=== PATIENT | female | born 1990 | race Two or more races ===

== ENCOUNTER 2021-11-20 03:28 | Observation (INO) | payer MEDICAID ==
[2021-11-20] MEDS ORDERED: Acetaminophen 500 MG Tab PO PRN (03:49)
[2021-11-20] MEDS ORDERED: Lactated Ringers 1,000 ML IV SCH (04:00)
[2021-11-20] MEDS: Ampicillin 1 GM in Sodium Chloride 0.9% 50 ML IV SCH ×2 (04:24→08:13)
[2021-11-20] MEDS ORDERED: Clindamycin Phosphate in D5W 900 MG in Premix Bag 1 BAG IV ONE ×2 (05:56)
[2021-11-20] MEDS ORDERED: Dexamethasone 10 MG/ML SDV IM ONE (12:45)
== END 2021-11-20 10:20 ==
LOC: MW.OB 03:28
PROVIDERS: ADMIT Obstetrics & Gynecology; ATTEND Obstetrics & Gynecology
DX: O98.512 Other viral diseases complicating pregnancy, second trimester (principal); U07.1 COVID-19; O98.812 Other maternal infectious and parasitic diseases complicating pregnancy, second trimester; A41.9 Sepsis, unspecified organism; Z3A.26 26 weeks gestation of pregnancy
CPT/HCPCS: 36415; 83605; 96365; 96367; 96375; 96376; A9270; G0378; J0290; J1580; J3490; J7120

== ENCOUNTER 2022-06-23 23:09 | Emergency (ER) | payer SELFPAY | END 2022-06-24 03:29 | disposition home or self-care (01) | LOC: MW.ED 23:09 | DX: O99.891 Other specified diseases and conditions complicating pregnancy (principal); R10.2 Pelvic and perineal pain; Z3A.01 Less than 8 weeks gestation of pregnancy | CPT/HCPCS: 36415; 76817; 76817-26; 80053; 81001; 81025; 84702; 85025; 86850; 86900; 86901; 99284 ==

== ENCOUNTER 2023-01-31 00:48 | Observation (INO) | payer MEDICAID | END 2023-01-31 03:36 | disposition home or self-care (01) | LOC: MW.OBCHECK 00:48 → MW.OB 00:56 → MW.OBCHECK 01:26 → MW.OB 01:26 | PROVIDERS: ADMIT Obstetrics & Gynecology; ATTEND Obstetrics & Gynecology | DX: O47.1 False labor at or after 37 completed weeks of gestation (principal); Z3A.37 37 weeks gestation of pregnancy | CPT/HCPCS: 59025; G0378; 99212 ==

== ENCOUNTER 2023-02-05 06:50 | Inpatient (IN) | payer MEDICAID ==
[2023-02-05] MEDS ORDERED: Nalbuphine 10 MG/0.5 ML Syringe IVPUSH ONE (07:20)
[2023-02-05] MEDS ORDERED: Sodium Chloride 0.9% 20 ML SDV IV PRN (09:06)
[2023-02-05] MEDS ORDERED: Tranexamic Acid IN NACL,ISO-OS 1,000 MG in Premix Bag 1 BAG IV PRN ×2 (09:06)
[2023-02-05] MEDS ORDERED: Water For Irrigation,Sterile 1,000 ML Container IRR PRN (09:06)
[2023-02-05] MEDS ORDERED: Misoprostol 200 MCG Tab PO PRN (09:06)
[2023-02-05] MEDS ORDERED: Lidocaine 1% 50 ML MDV INJECT PRN (09:06)
[2023-02-05] MEDS ORDERED: Carboprost Tromethamine 250 MCG/1 mL Vial IM PRN (09:06)
[2023-02-05] MEDS ORDERED: Methylergonovine 0.2 MG/1 ML Amp IM PRN (09:06)
[2023-02-05] MEDS ORDERED: Sodium Chloride 0.9% 2.5 ML Syringe FLUSH PRN (09:06)
[2023-02-05] MEDS ORDERED: Sodium Chloride 0.9% 10 ML Syringe FLUSH PRN (09:06)
[2023-02-05] MEDS ORDERED: Oxytocin/0.9 % Sodium Chloride 30 UNIT/500 ML BAG IV SCH ×2 (09:15→15:30)
[2023-02-05] MEDS: Lactated Ringers 1,000 ML IV SCH ×3 (09:36→17:53)
[2023-02-05 09:57] LABS: HEMATOCRIT 35.2 % (36.0-46.0); HEMOGLOBIN 11.3 g/dL (12.0-16.0); MEAN CORPUSCULAR HEMOGLOBIN 26.2 pg (27.0-32.0); MEAN CORPUSCULAR HGB CONC 32.1 g/dL (31.0-37.0); MEAN CORPUSCULAR VOLUME 81.7 fL (80.0-98.0); RED BLOOD CELL COUNT 4.31 M/uL (4.30-5.90); WHITE BLOOD CELL COUNT,WBC 10.63 K/uL (4.0-11.0)
[2023-02-05] MEDS ORDERED: ePHEDrine 50 MG/ML SDV IVPUSH PRN ×2 (10:05)
[2023-02-05] MEDS ORDERED: Phenylephrine HCl 0.5 MG/5 ML AMP IVPUSH PRN (10:05)
[2023-02-05 10:06] LABS: PLATELET COUNT,PLT 273 K/uL (150-400)
[2023-02-05] MEDS ORDERED: Ropivacaine HCl/PF 400 MG in Premix Bag 1 BAG EPIDUR SCH (10:15)
[2023-02-05] MEDS ORDERED: Dexmedetomidine 200 MCG/2 ML SDV ONE (10:36)
[2023-02-05] MEDS ORDERED: Terbutaline 1 MG/ML SDV SUBCUT PRN (15:22)
[2023-02-05] MEDS ORDERED: Lanolin 100% Cream 7 GM Tube TOP PRN (19:09)
[2023-02-05] MEDS ORDERED: Acetaminophen 500 MG Tab PO PRN ×2 (19:09)
[2023-02-05] MEDS ORDERED: Bisacodyl 10 MG Supp RECTAL PRN (19:09)
[2023-02-05] MEDS ORDERED: Benzocaine/Menthol 20%-0.5% Spray 78 GM Cannister TOP PRN (19:09)
[2023-02-05] MEDS ORDERED: Ibuprofen 400 MG Tab PO PRN (19:09)
[2023-02-05] MEDS: Ibuprofen 800 MG Tab PO PRN (21:15)
[2023-02-05] MEDS: Docusate Sodium 100 MG Cap PO PRN (21:15)
[2023-02-05] MEDS: Witch Hazel Medicated Pads 40/Jar TOP PRN (21:16)
[2023-02-06 06:04] LABS: HEMATOCRIT 30.3 % (36.0-46.0); HEMOGLOBIN 9.7 g/dL (12.0-16.0)
[2023-02-06] MEDS: Ibuprofen 800 MG Tab PO PRN (07:38)
[2023-02-06] MEDS: Docusate Sodium 100 MG Cap PO PRN (12:44)
[2023-02-06] MEDS: Witch Hazel Medicated Pads 40/Jar TOP PRN (22:10)
== END 2023-02-06 22:30 | disposition home or self-care (01) | DRG 807 ==
LOC: MW.OBCHECK 06:50 → MW.OB 06:51 → MW.OBCHECK 09:06 → OBSVTOIN 18:51 → MW.OB 22:14
PROVIDERS: ADMIT Obstetrics & Gynecology Obstetrics; ATTEND Obstetrics & Gynecology Obstetrics
PROC: 10E0XZZ Delivery of Products of Conception, External Approach (ICD-10-PCS; principal; 2023-02-05)
PROC: 3E0R3BZ Introduction of Anesthetic Agent into Spinal Canal, Percutaneous Approach (ICD-10-PCS; 2023-02-05)
PROC: 00HU33Z Insertion of Infusion Device into Spinal Canal, Percutaneous Approach (ICD-10-PCS; 2023-02-05)
DX: O42.02 Full-term premature rupture of membranes, onset of labor within 24 hours of rupture (principal); Z37.0 Single live birth; Z86.16 Personal history of COVID-19; Z77.22 Contact with and (suspected) exposure to environmental tobacco smoke (acute) (chronic); Z3A.37 37 weeks gestation of pregnancy
CPT/HCPCS: 01967; 36415; 51702; 59025; 59409; 85014; 85018; 85027; 86592; 86850; 86900; 86901; A9270-GY; J2300; J2590; J3490; J7120

== ENCOUNTER 2023-07-21 18:49 | Emergency (ER) | payer MEDICAID ==
[2023-07-21 19:59] LABS: BASOPHILS ABSOLUTE AUTO 0.04 K/uL (0.00-0.20); BASOPHILS PERCENT AUTO 0.5 % (0.0-1.0); EOSINOPHILS ABSOLUTE AUTO 0.18 K/uL (0.00-0.45); EOSINOPHILS PERCENT AUTO 2.3 % (0.0-6.0); HEMATOCRIT 40.4 % (37.0-47.0); HEMOGLOBIN 13.5 g/dL (12.0-16.0); IMMATURE GRAN ABSOLUTE AUTO 0.01 K/uL (0.00-0.05); IMMATURE GRAN PERCENT AUTO 0.1 % (0.0-0.4); LYMPHOCYTES ABSOLUTE AUTO 2.26 K/uL (1.00-4.80); LYMPHOCYTES PERCENT AUTO 29.3 % (24.0-44.0); MEAN CORPUSCULAR HEMOGLOBIN 28.8 pg (28.0-32.0); MEAN CORPUSCULAR HGB CONC 33.4 g/dL (32.0-36.0); MEAN CORPUSCULAR VOLUME 86.3 fL (83.0-99.0); MEAN PLATELET VOLUME 11.1 fL (9.4-12.3); MONOCYTES PERCENT AUTO 7.8 % (0.0-8.0); NEUTROPHILS ABSOLUTE AUTO 4.63 K/uL (1.80-7.70); PLATELET COUNT,PLT 313 K/uL (150-400); RED BLOOD CELL COUNT 4.68 M/uL (4.10-5.30); WHITE BLOOD CELL COUNT,WBC 7.72 K/uL (3.9-11.3)
[2023-07-21] MEDS: Sodium Chloride 0.9% 1,000 ML IV ONE (20:28)
[2023-07-21 20:38] LABS: A/G RATIO 0.9 (0.9-1.6); ALBUMIN 3.5 g/dL (3.4-5.0); BILIRUBIN TOTAL 1.2 mg/dL (0.2-1.0); CALCIUM 8.4 mg/dL (8.5-10.1); CARBON DIOXIDE,CO2 25.6 mmol/L (21.0-32.0); CREATININE 0.7 mg/dL (0.6-1.0); EST CRCL DRUG DOSING (CG) 82.88 mL/min; POTASSIUM,K 3.6 mmol/L (3.5-5.1); PROTEIN TOTAL,TP 7.2 g/dL (6.4-8.2)
[2023-07-21] MEDS: Sodium Chloride 0.9% 10 ML Syringe FLUSH PRN (20:42)
[2023-07-21] MEDS: Sodium Chloride 0.9% 2.5 ML Syringe FLUSH PRN (20:43)
[2023-07-21 20:46] LABS: APPEARANCE,URINE CLEAR; BILIRUBIN,URINE NEGATIVE (NEGATIVE); COLOR,URINE YELLOW; GLUCOSE,URINE NEGATIVE (NEGATIVE); KETONES,URINE NEGATIVE (NEGATIVE); LEUKOCYTE ESTERASE,URINE NEGATIVE (NEGATIVE); NITRITE,URINE NEGATIVE (NEGATIVE); OCCULT BLOOD,URINE NEGATIVE (NEGATIVE); PROTEIN,URINE NEGATIVE (NEGATIVE); UROBILINOGEN,URINE 0.2 EU/dL (<2.0)
== END 2023-07-21 21:36 | disposition home or self-care (01) ==
LOC: MW.ED 18:49
DX: R53.1 Weakness (principal); F17.210 Nicotine dependence, cigarettes, uncomplicated; Z86.16 Personal history of COVID-19
CPT/HCPCS: 36415; 80053; 81003; 81025; 82947; 85025; 96360; 99285; J3490; J7030; 93010; 99282

== ENCOUNTER 2024-08-04 20:45 | Emergency (ER) | payer MEDICAID ==
[2024-08-04 21:19] LABS: BASOPHILS ABSOLUTE AUTO 0.04 K/uL (0.00-0.20); BASOPHILS PERCENT AUTO 0.4 % (0.0-1.0); EOSINOPHILS ABSOLUTE AUTO 0.18 K/uL (0.00-0.45); EOSINOPHILS PERCENT AUTO 1.6 % (0.0-6.0); HEMATOCRIT 36.6 % (37.0-47.0); HEMOGLOBIN 12.5 g/dL (12.0-16.0); IMMATURE GRAN ABSOLUTE AUTO 0.03 K/uL (0.00-0.05); IMMATURE GRAN PERCENT AUTO 0.3 % (0.0-0.4); LYMPHOCYTES PERCENT AUTO 20.4 % (24.0-44.0); MEAN CORPUSCULAR HEMOGLOBIN 30.6 pg (28.0-32.0); MEAN CORPUSCULAR HGB CONC 34.2 g/dL (32.0-36.0); MEAN CORPUSCULAR VOLUME 89.5 fL (83.0-99.0); MEAN PLATELET VOLUME 10.9 fL (9.4-12.3); MONOCYTES PERCENT AUTO 7.1 % (0.0-8.0); NEUTROPHILS ABSOLUTE AUTO 7.94 K/uL (1.80-7.70); NEUTROPHILS PERCENT AUTO 70.2 % (41.0-71.0); PLATELET COUNT,PLT 289 K/uL (150-400); RED BLOOD CELL COUNT 4.09 M/uL (4.10-5.30); WHITE BLOOD CELL COUNT,WBC 11.29 K/uL (3.9-11.3)
[2024-08-04] MEDS: Acetaminophen 500 MG Tab PO ONE (21:43)
[2024-08-04 21:47] LABS: ALANINE AMINOTRANSFERASE,ALT 16 IU/L (14-63); ALBUMIN 3.4 g/dL (3.4-5.0); ALKALINE PHOSPHATASE 60 U/L (46-116); ASPARTATE AMNIOTRANSFERASE,AST 7 IU/L (15-37); BILIRUBIN TOTAL 0.7 mg/dL (0.2-1.0); BLOOD UREA NITROGEN,BUN 8 mg/dL (7.0-18.0); CALCIUM 8.4 mg/dL (8.5-10.1); CARBON DIOXIDE,CO2 25.5 mmol/L (21.0-32.0); CHLORIDE,CL 106 mmol/L (98-107); CREATININE 0.8 mg/dL (0.6-1.0); ESTIMATED GFR 100 mL/min (>60); GLUCOSE RANDOM 113 mg/dL (74-106); POTASSIUM,K 3.6 mmol/L (3.5-5.1); PROTEIN TOTAL,TP 6.8 g/dL (6.4-8.2); SODIUM,NA 140 mmol/L (136-145)
[2024-08-04 21:48] LABS: BILIRUBIN,URINE NEGATIVE (NEGATIVE); COLOR,URINE YELLOW; GLUCOSE,URINE NEGATIVE (NEGATIVE); KETONES,URINE NEGATIVE (NEGATIVE); LEUKOCYTE ESTERASE,URINE TRACE (NEGATIVE); NITRITE,URINE NEGATIVE (NEGATIVE); OCCULT BLOOD,URINE LARGE (NEGATIVE); PROTEIN,URINE NEGATIVE (NEGATIVE); UROBILINOGEN,URINE 0.2 EU/dL (<2.0)
[2024-08-04 21:56] LABS: AMORPHOUS SEDIMENT,URINE MANY (NEGATIVE); APPEARANCE,URINE CLOUDY; BACTERIA,URINE FEW (NEGATIVE); EPITHELIAL CELLS,URINE FEW (NONE-FEW)
[2024-08-04 21:57] LABS: RBC,URINE 16-19 (0-2/HPF)
== END 2024-08-04 22:03 | disposition home or self-care (01) ==
LOC: MW.ED 20:45
DX: O20.8 Other hemorrhage in early pregnancy (principal); Z75.8 Other problems related to medical facilities and other health care; Z3A.00 Weeks of gestation of pregnancy not specified
CPT/HCPCS: 36415; 76817; 80053; 81001; 84702; 85025; 86900; 86901; 87086; 99284; A9270

== ENCOUNTER 2024-11-21 18:24 | Emergency (ER) | payer MEDICAID ==
[2024-11-21] MEDS: Acetaminophen 500 MG Tab PO ONE (19:30)
[2024-11-21 20:15] LABS: APPEARANCE,URINE SLT CLOUDY; BILIRUBIN,URINE NEGATIVE (NEGATIVE); COLOR,URINE YELLOW; GLUCOSE,URINE NEGATIVE (NEGATIVE); KETONES,URINE TRACE mg/dL (NEGATIVE); LEUKOCYTE ESTERASE,URINE SMALL (NEGATIVE); NITRITE,URINE NEGATIVE (NEGATIVE); OCCULT BLOOD,URINE TRACE-INTACT (NEGATIVE); PH,URINE 5.5 (5.0-8.0); PROTEIN,URINE NEGATIVE (NEGATIVE); UROBILINOGEN,URINE 0.2 EU/dL (<2.0)
[2024-11-21 20:32] LABS: BACTERIA,URINE FEW (NEGATIVE); EPITHELIAL CELLS,URINE FEW (NONE-FEW); RBC,URINE 0-1 (0-2/HPF); WBC,URINE 0-3 (0-5/HPF)
[2024-11-21] MEDS: Cephalexin 500 MG Cap PO ONE (20:39)
== END 2024-11-21 20:40 | disposition home or self-care (01) ==
LOC: MW.ED 18:24
DX: O23.41 Unspecified infection of urinary tract in pregnancy, first trimester (principal); N39.0 Urinary tract infection, site not specified; Z75.3 Unavailability and inaccessibility of health-care facilities; Z79.899 Other long term (current) drug therapy; Z3A.10 10 weeks gestation of pregnancy
CPT/HCPCS: 76801; 81001; 87086; 99284; A9270; 99283

== ENCOUNTER 2025-02-10 21:43 | Emergency (ER) | payer MEDICAID ==
[2025-02-10] MEDS: Alum Hydrox/Mag Hydrox/Simeth 15 ML, Lidocaine 2% 5 ML PO ONE (22:45)
[2025-02-10 23:11] LABS: BASOPHILS ABSOLUTE AUTO 0.03 K/uL (0.00-0.20); BASOPHILS PERCENT AUTO 0.3 % (0.0-1.0); EOSINOPHILS ABSOLUTE AUTO 0.16 K/uL (0.00-0.45); EOSINOPHILS PERCENT AUTO 1.4 % (0.0-6.0); IMMATURE GRAN ABSOLUTE AUTO 0.05 K/uL (0.00-0.05); IMMATURE GRAN PERCENT AUTO 0.4 % (0.0-0.4); LYMPHOCYTES ABSOLUTE AUTO 1.97 K/uL (1.00-4.80); LYMPHOCYTES PERCENT AUTO 17.1 % (24.0-44.0); MEAN PLATELET VOLUME 10.6 fL (9.4-12.3); MONOCYTES ABSOLUTE AUTO 0.83 K/uL (0.00-0.80); MONOCYTES PERCENT AUTO 7.2 % (0.0-8.0); NEUTROPHILS ABSOLUTE AUTO 8.50 K/uL (1.80-7.70); NEUTROPHILS PERCENT AUTO 73.6 % (41.0-71.0); NRBC ABSOLUTE 0.00 K/uL (0.00-0.02); NRBC PERCENT 0.0 /100WBC (0.0-0.2); PLATELET COUNT,PLT 261 K/uL (150-400); RED BLOOD CELL COUNT 3.82 M/uL (4.10-5.30); WHITE BLOOD CELL COUNT,WBC 11.54 K/uL (3.9-11.3)
[2025-02-10 23:39] LABS: A/G RATIO 0.7 (0.9-1.6); ALANINE AMINOTRANSFERASE,ALT 15.0 IU/L (14-63); ASPARTATE AMNIOTRANSFERASE,AST 11.0 IU/L (15-37); BILIRUBIN TOTAL 0.4 mg/dL (0.2-1.0); BLOOD UREA NITROGEN,BUN 7.0 mg/dL (7.0-18.0); CARBON DIOXIDE,CO2 23.7 mmol/L (21.0-32.0); CHLORIDE,CL 103.0 mmol/L (98-107); CREATININE 0.5 mg/dL (0.6-1.0); EST CRCL DRUG DOSING (CG) 114.95 mL/min; GLUCOSE RANDOM 92.0 mg/dL (74-106); POTASSIUM,K 3.5 mmol/L (3.5-5.1); PROTEIN TOTAL,TP 6.2 g/dL (6.4-8.2); SODIUM,NA 136.0 mmol/L (136-145)
[2025-02-10 23:44] LABS: ESTIMATED GFR 127.0 mL/min (>60)
[2025-02-10 23:45] LABS: HCG QUALITATIVE,SERUM POSITIVE (NEGATIVE)
[2025-02-11 00:07] LABS: GLUCOSE,URINE NEGATIVE (NEGATIVE); OCCULT BLOOD,URINE NEGATIVE (NEGATIVE)
[2025-02-11 00:08] LABS: APPEARANCE,URINE SLT CLOUDY
== END 2025-02-11 00:40 | disposition home or self-care (01) ==
LOC: MW.ED 21:43
DX: O99.891 Other specified diseases and conditions complicating pregnancy (principal); R09.A2 Foreign body sensation, throat; O99.612 Diseases of the digestive system complicating pregnancy, second trimester; K21.9 Gastro-esophageal reflux disease without esophagitis; Z79.899 Other long term (current) drug therapy; Z3A.22 22 weeks gestation of pregnancy
CPT/HCPCS: 36415; 80053; 81003; 84703; 85025; 86308; 87086; 87651; 93005; 99283; J3490; A9270-GY